=== PATIENT | female | born 1965 | race Asian ===

== ENCOUNTER 2021-11-23 13:08 | Emergency (ER) | payer OTHER ==
[~2021-11-23] VITALS: Ht 154.9 cm; Wt 54.4 kg
[2021-11-23] MEDS ORDERED: cloNIDine HCL 0.1 MG TAB PO ONE (13:45)
[2021-11-23 16:20] VITALS: BP 151/95
== END 2021-11-23 18:09 | disposition home or self-care (01) ==
LOC: ER 13:08
DX: R42 Dizziness and giddiness (principal); I16.0 Hypertensive urgency; Z90.49 Acquired absence of other specified parts of digestive tract
CPT/HCPCS: 70450; 93005

== ENCOUNTER 2022-06-10 13:51 | Emergency (ER) | payer MEDICAID ==
[~2022-06-10] VITALS: Ht 157.5 cm; Wt 58.8 kg
[2022-06-10] MEDS ORDERED: MECL25TA18 PO (15:03)
[2022-06-10 15:31] LABS: Basophils # (auto) 0.1 10 ^3/uL (0-0.2); Basophils % (auto) 0.9 % (0.0-2.0); Eosinophils # (auto) 0.2 10 ^3/uL (0-0.8); Eosinophils % (auto) 1.7 % (0.0-7.0); Hematocrit 46.6 % (36.0-46.0); Hemoglobin 15.6 g/dL (12.2-16.2); Lymphocytes # (auto) 3.1 10 ^3/uL (0.4-5.4); Lymphocytes % (auto) 34.9 % (10.0-50.0); Mean Corpuscular Hemoglobin 28.3 pg (28.0-32.0); Mean Corpuscular Hgb Conc. 33.4 g/dL (32.0-36.0); Mean Corpuscular Volume 84.8 fL (80.0-100.0); Monocytes # (auto) 0.6 10 ^3/uL (0-1.3); Monocytes % (auto) 6.9 % (0.0-12.0); Neutrophils # (auto) 4.9 10 ^3/uL (1.6-8.6); Neutrophils % (auto) 55.6 % (37.0-80.0); Nucleated Red Blood Cells % 0.9 %; Red Cell Distribution Width 12.9 % (11.8-14.3); White Blood Cell 8.9 10^3/uL (4.4-10.8)
[2022-06-10 15:46] LABS: Albumin 4.1 g/dL (3.4-5.0); Calcium 9.4 mg/dL (8.5-10.1); Potassium 4.6 mmol/L (3.5-5.1)
[2022-06-10 16:21] LABS: BUN/Creatinine Ratio 19.4; Bilirubin, Total 0.3 mg/dL (0.2-1.0); Total Protein 7.7 g/dL (6.4-8.2)
[2022-06-10 17:33] VITALS: BP 169/90
== END 2022-06-10 17:35 | disposition home or self-care (01) ==
LOC: ER 13:51
DX: R42 Dizziness and giddiness (principal); I10 Essential (primary) hypertension; Z90.49 Acquired absence of other specified parts of digestive tract
CPT/HCPCS: 36415; 70450; 80053; 84484; 85025